=== PATIENT | female | born 1975 | race Caucasian/White ===

== ENCOUNTER 2017-02-24 07:47 | Inpatient (IN) | payer BC ==
--- NOTE | 2017-02-11 10:16 | GHP ---
[f rep st] PREOP HISTORY AND PHYSICAL Amended report Patient slated for surgery on February 24, 2017, on the obstetric service. HISTORY OF PRESENT ILLNESS: Upon admission, the patient is a 41-year-old, G3, P1, A1 with estimated due date of 02/28/2017, who is slated for repeat C- section on 02/24 at 39+ weeks gestation. Patient has a history of prior section and declines trial of labor. The patient also has undesired fertility and desires to have a bilateral salpingectomy for permanent sterilization. If vascularity precludes having the tubes removed, then she would like bilateral tubal ligation. The patient has a history with her first of being a gestational diabetic A2 and was then followed by an institutional asset manager throughout this . The patient initially did insulin in the first trimester; however, weaned off this as her fasting blood sugars remained stable. The patient maintained Glucophage throughout the and has had stable blood sugars in the normal range. The patient has also had serial ultrasounds through the . Initially, the estimated weight was in the 8th percentile; however, a followup at 28 weeks was the 16th percentile, and a marginal cord insertion was noted. All anatomy was finally verified at 32 weeks gestation. The estimated weight was the 32nd percentile. Normal fluid and Dopplers. The patient has been counseled as to risks and benefits of repeat surgery and salpingectomy, and the consent form has been signed. LABS: The patient's blood type is A positive with negative antibody screen. RPR nonreactive. Rubella immune. Hepatitis B surface antigen negative. HIV negative. Initial hematocrit 38% with mild drop in mid to 35%, and with iron supplementation it remained stable at 34%. Pap smear was normal. Gonorrhea and chlamydia negative. Verifi testing was negative. MSAFP was not performed. GBS culture was negative. PAST MEDICAL HISTORY: The patient has used insulin in the past for gestational diabetes A2. History of PCOS and has used Glucophage in the past, and maintained this through the . Hypothyroidism for years. History of a kidney stone, age 30. Obesity. PAST SURGICAL HISTORY: section in 2013. Appendectomy in 2012. Lithotripsy at age 30 for kidney stone. PAST OBSTETRIC HISTORY: In 2011, SAB in the first trimester. In 2013, a viable female born by section at 6 pounds due to intolerance to labor. ALLERGIES: The patient has latex sensitivity. CURRENT MEDICATIONS: vitamins, Synthroid 137 mcg a day. The patient has been advised to not use generics, Glucophage extended release 500 mg b.i.d. , iron. SOCIAL HISTORY: The patient is , lives with her , and daughter. The patient is a nonsmoker. No alcohol or drug use. PHYSICAL EXAM: GENERAL: At the time of preop, the patient is a well-developed , well-nourished, obese female, in no distress. Weight 215 pounds. VITAL SIGNS : Blood pressure 110/74. The patient is clinically afebrile. Urinalysis shows trace protein with negative glucose. LUNGS: Clear to auscultation bilaterally. CARDIOVASCULAR: Regular rate and rhythm. heart tones are in the 140s. Pelvic exam is deferred. Fundal height at 37 cm. EXTREMITIES: Nontender. Mild edema. ASSESSMENT: Intrauterine at 39+ weeks gestation at the time of scheduled repeat section. Prior section, declines trial of labor. Undesired fertility, requesting bilateral salpingectomies. Hypothyroidism on Synthroid. Gestational diabetes on Glucophage. GBS negative. PLAN: Will proceed with repeat section on February 24 with bilateral salpingectomies. The patient is advised to use her usual Glucophage on the day prior to surgery and then hold the Glucophage in the morning, but to take her Synthroid with a sip of water. /[id number]/MODL Add acc#, 02/24/17, leanne LITTLEJOHN
[2017-02-24] MEDS ORDERED: CITRIC ACID/SODIUM CITRATE 30 ML UDCUP ONE (08:33)
[2017-02-24] MEDS ORDERED: CEFAZOLIN 2 GM/DEXTROSE/100 ML BAG IV ONE (08:33)
[2017-02-24] MEDS ORDERED: ceFAZolin 2 GM/DEXTROSE 100 ML IV ONE (08:35)
[2017-02-24] MEDS ORDERED: LR 500 ML IV ONE (08:35)
[2017-02-24] MEDS ORDERED: LIDOCAINE 1% 2 ML INJ ONE (08:57)
[2017-02-24] MEDS ORDERED: LR 1,000 ML IV SCH (09:00)
[2017-02-24] MEDS ORDERED: CITRIC ACID/SODIUM CITRATE 30 ML UDCUP PO ONE (09:00)
[2017-02-24 09:03] LABS: % IMMATURE GRANULYOCYTES 0.3 % (0.0-1.1); ABSOLUTE IMMATURE GRANULOCYTES 0.03 10^3/uL (0.00-0.10); ADD DIFF? NO; ADD MORPH? NO; ADD SCAN? NO; ATYPICAL LYMPHOCYTE FLAG 20 (0-99); FRAGMENT RBC FLAG 0 (0-99); HEMATOCRIT 36.1 % (38.0-47.0); HEMOGLOBIN 12.6 g/dL (12.6-16.3); LEFT SHIFT FLG 0 (0-99); LIPEMIA HEMOLYSIS FLAG 90 (0-99); MEAN CELL HEMOGLOBIN 31.9 pg (27.9-34.1); MEAN CELL HEMOGLOBIN CONCENTR. 34.9 g/dL (32.4-36.7); MEAN CELL VOLUME 91.4 fL (81.5-99.8); MEAN PLATELET VOLUME 11.3 fL (8.7-11.7); PLATELET CLUMPS FLAG 10 (0-99); PLATELET COUNT 163 10^3/uL (150-400); RED BLOOD CELL COUNT 3.95 10^6/uL (4.18-5.33); RED CELL DISTRIBUTION WIDTH 12.9 % (11.5-15.2)
[2017-02-24] MEDS ORDERED: morphINE PF 5 MG/10 ML INJ ONE (09:56)
[2017-02-24] MEDS ORDERED: fentaNYL 100 MCG/2 ML INJ ONE (09:56)
[2017-02-24] MEDS ORDERED: OXYTOCIN 100 UNITS/10 ML VIAL ONE (10:01)
[2017-02-24] MEDS ORDERED: PHENYLEPHRINE HCL 100 MCG/ML SYR ONE ×2 (10:01→10:43)
[2017-02-24] MEDS ORDERED: ONDANSETRON 4 MG/2 ML VIAL ONE (10:27)
--- NOTE | 2017-02-24 12:01 | OBPROC ---
- Delivery Pre-op Diagnoses: IUP at 39+ wks, PCS - declines KAT, GDM - diet controlled, undesired fertility Post-op Diagnoses: same, delivered Procedure: Repeat, Low Transverse, Other (Specify) (bilateral salpingectomies) Surgeon: Jazz Jorgensen Hospitality Host: Ingrid Hernandez Anesthesiologist: Aneudy Ngo Multi Operation Machine Operator/WASH BOX OPERATOR: Maira Toscano (WASH BOX OPERATOR) Anesthesia: Spinal (with Duramorph for post op pain relief) Complications: None Findings: normal uterus, tubes and ovaries. some bladder scarring but allowed minimal visceral separation for bladder flap. tubes removed easily with three separate ties with 0-Vicryl over vasculature. all appeared hemostatic after uterine replacement. Specimen(s)/Path: Fallopian Tube(s) IV Fluid (ml): 3,000 EBL: 1000 - Info A Delivery Date: 02/24/17 Delivery Time: 10:47 Sex of Infant: Female Score (1 Min): 8 Score (5 Min): 9
[2017-02-24] MEDS ORDERED: EPSOM SALT 454 GM TP PRN (12:02)
[2017-02-24] MEDS ORDERED: LR 1,000 ML IV PRN (12:02)
[2017-02-24] MEDS ORDERED: OXYTOCIN/RINGERS LACTATE 1,000 ML IV PRN (12:02)
[2017-02-24] MEDS ORDERED: OLIVE OIL 118 ML BTL MISC PRN (12:02)
[2017-02-24] MEDS ORDERED: LIDOCAINE 1% 30 ML SDV SC PRN (12:02)
[2017-02-24] MEDS ORDERED: TERBUTALINE SULFATE 1 MG/ML VIAL IV PRN (12:02)
[2017-02-24] MEDS ORDERED: LACTULOSE 20 GM/30 ML UDCUP PO PRN (12:06)
[2017-02-24] MEDS ORDERED: POLYETHYLENE GLYCOL 3350 17 GM PKT PO PRN (12:06)
[2017-02-24] MEDS ORDERED: MAGNESIUM HYDROXIDE 30 ML UDCUP PO PRN (12:06)
[2017-02-24] MEDS ORDERED: BISACODYL 10 MG SUPP PR PRN (12:06)
[2017-02-24] MEDS ORDERED: METOCLOPRAMIDE 10 MG/2 ML VIAL ONE (12:14)
[2017-02-24] MEDS ORDERED: METOCLOPRAMIDE 10 MG/2 ML VIAL IVP PRN (12:24)
[2017-02-24] MEDS ORDERED: PHENYLEPHRINE HCL 100 MCG/ML SYR IVP PRN (12:24)
[2017-02-24] MEDS ORDERED: ONDANSETRON 4 MG/2 ML VIAL IVP PRN (12:24)
[2017-02-24] MEDS ORDERED: NALOXONE HCL 0.4 MG/ML INJ IVP PRN (12:24)
--- NOTE | 2017-02-24 15:31 | PREANESOB ---
Obstetric Pre-Anesthesia Info - General Info Proposed Procedure: Repeat C Section. : 3 Para: 2 WBD: 39 - Info Monitors: External FHR Baseline (bpm): 135 FHR Pattern: Reassuring - Labor Status Section History: Repeat Indications for Current Section: Elective/Repeat Labor Epidural: No Anesthesia ROS: Prior epidural for labor and C Section, PCOS, hypothyroid. Allergies/Adverse Reactions: Allergy/AdvReac Type Severity Reaction Status Date / Time No Known Allergies Allergy Unverified 03/03/14 07:19 Home Medications: Medication Instructions Recorded 1 tab PO DAILY 03/03/14 Synthroid 150 mcg (RX) 1 tab PO DAILY 03/03/14 Vit D3 & K/Berberine HCl/Hops 1 iunits PO DAILY 03/03/14 Iron,Carbonyl [Feosol] 45 mg PO DAILY 02/24/17 metFORMIN SR [Glucophage XR 500 mg 500 mg PO DAILY@1800 02/24/17 (*)] Visit Medications: Generic Name Dose Route Start Last Admin Trade Name Freq PRN Reason Stop Dose Admin Hydrocodone Bitart/Acetaminophen 1 - 2 tab 02/24/17 12:05 [place] 5/325 PO 03/06/17 12:04 Q4HRS PRN Pain, Moderate Bisacodyl 10 mg 02/24/17 12:06 Dulcolax Rectal [place] 08/23/17 12:05 DAILY PRN Constipation Protocol Diphenhydramine HCl 25 - 50 mg 02/24/17 12:24 Benadryl Injection IVP 08/23/17 12:23 Q6HRS PRN Itching Lactated Ringer's 1,000 mls @ 125 mls/hr 02/24/17 09:00 Lr IV 08/23/17 08:59 CONT FOREST Lactated Ringer's 1,000 mls @ 0 mls/hr 02/24/17 12:02 Lr IV 08/23/17 12:01 PRN PRN SEE PROTOCOL CONDITIONS Protocol Per Protocol Oxytocin/Lactated Ringer's 1,000 mls @ 150 mls/hr 02/24/17 12:02 Pitocin 20 Units/Lr (Premix) IV PRN PRN Post- bleeding Ibuprofen 600 mg 02/24/17 12:02 Motrin PO 08/23/17 12:01 Q6HRS PRN post , inflammation Ketorolac Tromethamine 30 mg 02/24/17 18:00 Toradol IVP 02/25/17 12:01 Q6HRS [facility] Lactulose 20 gm 02/24/17 12:06 Cephulac PO 08/23/17 12:05 TID PRN Constipation Protocol Levothyroxine Sodium 137 mcg 02/25/17 06:00 Synthroid PO 08/24/17 05:59 DAILY AT 6AM FOREST Lidocaine HCl 30 ml 02/24/17 12:02 Lidocaine Hcl 1% SC 08/23/17 12:01 ONCE PRN Episiotomy Magnesium Hydroxide 30 ml 02/24/17 12:06 Milk Of Magnesia PO 08/23/17 12:05 DAILY PRN Constipation Protocol Magnesium Sulfate 454 gm 02/24/17 12:02 Epsom Salt TP 08/23/17 12:01 PRN PRN perineal discomfort Naloxone HCl 0.4 mg 02/24/17 12:24 Narcan IVP 02/25/17 12:28 PRN PRN respiratory depression [place] Oil 118 ml 02/24/17 12:02 Sweet Oil MISC 08/23/17 12:01 ONCE PRN preneal massage Ondansetron HCl 4 mg 02/24/17 12:24 Zofran IVP 08/23/17 12:23 Q4HRS PRN Nausea/Vomiting, Can't Take PO Polyethylene Glycol 17 gm 02/24/17 12:06 Miralax PO 08/23/17 12:05 DAILY PRN Constipation, patient prefers Protocol Senna/Docusate Sodium 1 - 2 tab 02/24/17 21:00 Senokot-S PO 08/23/17 20:59 BID [facility] Protocol Terbutaline Sulfate 0.25 mg 02/24/17 12:02 Brethine IV 08/23/17 12:01 ONCE PRN Tachysystole Discontinued Medications Generic Name Dose Route Start Last Admin Trade Name Freq PRN Reason Stop Dose Admin Cefazolin Sodium/Dextrose Confirm 02/24/17 08:33 Ancef 2 Gm (Premix) Administered 02/24/17 08:34 Dose 2 gm IV .STK-MED ONE Citric Acid/Sodium Citrate Confirm 02/24/17 08:33 Bicitra Administered 02/24/17 08:34 Dose 30 ml .ROUTE .STK-MED ONE Citric Acid/Sodium Citrate 30 ml 02/24/17 09:00 02/24/17 09:11 Bicitra PO 02/24/17 09:01 30 ml ONCALL ONE Administration Fentanyl Confirm 02/24/17 09:56 Sublimaze Administered 02/24/17 09:57 Dose 100 mcg .ROUTE .STK-MED ONE Cefazolin Sodium/Dextrose 100 mls @ 200 mls/hr 02/24/17 08:35 02/24/17 09:32 Ancef 2 Gm (Premix) IV 02/24/17 09:04 100 mls ONCALL ONE Administration Protocol Lactated Ringer's 500 mls @ 0 mls/hr 02/24/17 08:35 02/24/17 09:31 Lr IV 02/24/17 08:36 500 mls ONCE ONE Administration As Directed Lidocaine HCl Confirm 02/24/17 08:57 Lidocaine Hcl 1% Administered 02/24/17 08:58 Dose 2 ml .ROUTE .STK-MED ONE Metoclopramide HCl Confirm 02/24/17 12:14 Reglan Injection Administered 02/24/17 12:15 Dose 20 mg .ROUTE .STK-MED ONE Metoclopramide HCl 20 mg 02/24/17 12:24 Reglan Injection IVP 02/24/17 13:25 ONCE PRN Nausea/Vomiting, Use 2nd Morphine Sulfate Confirm 02/24/17 09:56 Morphine Pf 5 Mg/10 Ml Administered 02/24/17 09:57 Dose 5 mg .ROUTE .STK-MED ONE Ondansetron HCl Confirm 02/24/17 10:27 Zofran Administered 02/24/17 10:28 Dose 8 mg .ROUTE .STK-MED ONE Oxytocin Confirm 02/24/17 10:01 Pitocin Administered 02/24/17 10:02 Dose 100 units .ROUTE .STK-MED ONE Phenylephrine HCl Confirm 02/24/17 10:01 Marty-Synephrine Administered 02/24/17 10:02 Dose 1,000 mcg .ROUTE .STK-MED ONE Phenylephrine HCl Confirm 02/24/17 10:43 Marty-Synephrine Administered 02/24/17 10:44 Dose 1,000 mcg .ROUTE .STK-MED ONE Phenylephrine HCl 100 mcg 02/24/17 12:24 Marty-Synephrine IVP 02/24/17 13:25 Q1M PRN Hypotension - Anesthesia History Response to Local Anesthetics: Normal Anesthesia & Operative History: No Prior Problems - Social History Substance Use/Abuse: Denies - Focused Exam Latest Vital Signs (Nursing): Temp Pulse Resp BP Pulse Ox 36.3 C 90 16 100/52 L 93 02/24/17 15:00 02/24/17 15:00 02/24/17 15:00 02/24/17 15:00 02/24/17 15:00 Blood Pressure: 117/72 Heart Rate: 81 Respiratory Rate: 18 Height/Weight (Nursing): Height 167.64 cm Weight 98.883 kg Physical Exam: Within normal limits. ASA Status: II Labs: 02/24/17 08:30 Patient ABO/Rh A POSITIVE 02/24/17 08:30 - Plan Anesthetic Plan: SAB Consent Signed and on Chart: Yes Patient/Guardian Understands and Agrees to Plan: Yes
--- NOTE | 2017-02-24 15:34 | POSTANESTH ---
Post Anesthetic Evaluation Cardiovascular Status: Normal, Stable Respiratory Status: Normal, Stable, Similar to Pre-op Cond. Level of Consciousness/Mental Status: Can Participate in Eval, Alert and Oriented Pain Control: Adequate, Prn Tx Ordered Nausea/Vomiting Control: Adequate, Prn Tx Ordered Complications Possibly Related to Anesthesia: None Noted (Tolerated SAB well, BP treated, comfortable for surgery, to PACU, no pain, nausea treated with reglan.)
[2017-02-24] MEDS: KETOROLAC 30 MG/1 ML SDV IVP SCH (17:45)
--- NOTE | 2017-02-24 19:47 | SOAPPROG ---
SOAP Progress Note Assessment/Plan: Assessment: POD 1/2, s/p RCS, BS gest DM - diet controlled hypothyroid Plan: Doing ok - nausea lessening, routine care 02/24/17 19:43 Subjective: Pt doing better - nausea less and little liquids - broth. Very happy not to be as swollen as last time. Baby has made little attempt to latch but took donor milk and improved blood sugar. Pain controlled. Happy with SCDs, coyle draining well. Objective: Vital Signs Temp Pulse Resp BP Pulse Ox 36.6 C 67 14 97/67 L 96 02/24/17 16:00 02/24/17 16:00 02/24/17 16:00 02/24/17 16:00 02/24/17 16:00 Laboratory Results 02/24/17 08:30 02/23/17 02/24/17 02/25/17 05:59 05:59 05:59 Intake Total 3000 Output Total 1100 Balance 1900 Physical Exam - Physical Exam General Appearance: WD/WN Abdomen: non-tender (approp post op tenderness), soft, other (bandage CDI, FF at umb) Pelvic Exam: vaginal bleeding (normal lochia) Extremities: non-tender, pedal edema (moderate) Neuro/Psych: normal mood/affect ICD10 Worksheet Patient Problems: Problems Problem Status Onset Status post bilateral salpingectomy Acute Status post repeat low transverse section Acute Gestational diabetes mellitus, class A2 Acute
[2017-02-24] MEDS ORDERED: PROMETHAZINE HCL 25 MG TAB PO PRN (19:53)
[2017-02-24] MEDS ORDERED: SCOPOLAMINE HYDROBROMIDE 1.5 MG PATCH TD ONE (19:55)
[2017-02-24] MEDS: metFORMIN SR 500 MG TAB PO SCH (21:19)
[2017-02-24] MEDS: SENNOSIDES/DOCUSATE SODIUM TAB PO SCH (22:57)
[2017-02-25] MEDS: KETOROLAC 30 MG/1 ML SDV IVP SCH ×2 (01:12→06:47)
[2017-02-25] MEDS ORDERED: LEVOTHYROXINE 137 MCG TAB PO SCH (06:00)
[2017-02-25] MEDS: LEVOTHYROXINE 137 MCG TAB PO SCH (06:48)
[2017-02-25] MEDS: metFORMIN SR 500 MG TAB PO SCH ×2 (08:20→19:42)
--- NOTE | 2017-02-25 08:32 | SOAPPROG ---
SOAP Progress Note Assessment/Plan: Assessment: 41y/o Day 1 s/p elective repeat C/S 02/24/17 Plan: Con't routine PP care Con't routine cath care Iron/Colace Anticipate d/c to home 02/27/17 02/25/17 08:29 Subjective: Pt resting comfortably in bed with at bedside. Feeding with donor milk , reports going well. Denies BM. Cath in place, draining to gravity. Tolerating regular diet. Pain well-controlled. SCDs on. Denies feelings of depression/blues. Objective: Vital Signs Temp Pulse Resp BP Pulse Ox 35.9 C L 68 12 104/69 93 02/25/17 05:11 02/25/17 05:11 02/25/17 05:11 02/25/17 05:11 02/25/17 05:11 Laboratory Results 02/25/17 04:52 02/24/17 02/25/17 02/26/17 05:59 05:59 05:59 Intake Total 3600 Output Total 2100 Balance 1500 Physical Exam - Physical Exam General Appearance: alert, no apparent distress Respiratory: lungs clear, normal breath sounds Cardiac/Chest: regular rate, rhythm Abdomen: non-tender, soft, other (fundus firm @U; incision bandage clean/dry/ intact, old drainage on L side marked/unchanged) Skin: normal color, warm/dry Neuro/Psych: alert, normal mood/affect, oriented x 3 ICD10 Worksheet Patient Problems: Problems Problem Status Onset Status post repeat low transverse section Acute Status post bilateral salpingectomy Acute Gestational diabetes mellitus, class A2 Acute
[2017-02-25] MEDS: SENNOSIDES/DOCUSATE SODIUM TAB PO SCH ×2 (09:21→19:41)
[2017-02-25] MEDS: HYDROCODONE/APAP 5/325 TAB PO PRN ×4 (10:36→23:50)
[2017-02-25] MEDS: IBUPROFEN 600 MG TAB PO PRN ×2 (13:20→19:42)
[2017-02-25] MEDS: IRON POLYSAC/IRON HEME 28 MG TAB PO SCH (15:23)
--- NOTE | 2017-02-25 16:23 | GOP ---
[f rep st] OPERATIVE REPORT DATE OF OPERATION: 02/24/2017 SURGEON: Jazz Jorgensen MD HSPT TUTOR: Ingrid Hernandez MD. ANESTHESIA: Spinal anesthesia with Duramorph placement for postoperative pain relief. ANESTHESIOLOGIST: Jeremias Ngo MD. PREOPERATIVE DIAGNOSIS: Intrauterine at 39+ weeks; previous section declining trial of labor; gestational diabetes, diet controlled; undesired fertility. POSTOPERATIVE DIAGNOSIS: Intrauterine at 39+ weeks; previous section declining trial of labor; gestational diabetes, diet controlled ; undesired fertility; delivered. PROCEDURE PERFORMED: Repeat low transverse section with bilateral salpingectomies. FINDINGS: Viable female with Apgars of 8 and 9. ESTIMATED BLOOD LOSS: 1000 mL. INDICATIONS: PREOPERATIVE NOTE: Patient is a 41-year-old, G3, P1, A1 with an estimated due date of 02/28/2017 who was scheduled for a planned repeat section on February 24. The patient has been counseled about a trial of labor and declined attempting labor. The patient has undesired fertility and has been counseled about the options of tubal ligation versus salpingectomy to reduce potential cancer risk in the future. Patient does want to proceed with bilateral salpingectomies knowing that this essentially eliminate a fertility chance in the future. The patient has been counseled as to the risks and benefits of surgery and consent form has been signed. The patient has been a gestational diabetic, initially requiring insulin; however, then was weaned off this and has maintained good blood sugars with Glucophage. The patient's development has been watched monthly with ultrasound and the last estimated weight was 32nd percentile. The patient's thyroid management has been stable through the . DESCRIPTION OF PROCEDURE: The patient was taken to the operating room, where following satisfactory spinal anesthesia, the patient was placed in supine position with right hip displacement. The patient had received preoperative antibiotics and had SCDs on her lower extremities for DVT prophylaxis. The patient's abdomen and perineum were prepped and the patient draped in the usual sterile manner for abdominal procedures. A Mccollum catheter was placed within the bladder and draining clear urine. A Pfannenstiel incision was made in the lower abdomen along the previous scar line. The incision was extended down to the level of the fascia and the fascia was incised in the midline. This was extended sharply bilaterally and then the fascia was off the rectus muscles superiorly and inferiorly. The rectus muscles were in the midline and pulled to the sides. The parietal perineum was entered up high and was sharply dissected superiorly and inferiorly with care around the bladder. The visceroperitoneum was pretty densely adherent to the lower uterine segment and it was difficult to do much dissection to develop the flap. After the visceroperitoneum was reflected down a bit of the way and the bladder was not felt to be in the operative area then the low transverse hysterotomy was performed. This was done in the midline and then extended sharply bilaterally with bandage scissors. The amniotic sac was intact and then this was artificially opened and clear fluid obtained. The head was flexed and then with fundal pressure the head was brought down through the hysterotomy and then delivered through the hysterotomy without any problems. Bulb suction was performed on the hysterotomy. There was no nuchal cord noted. With additional fundal pressure, then the remainder of the baby was delivered through the hysterotomy without any problems. The baby was vigorous at the time of . The cord was doubly clamped and cut and the baby was handed off the field for full evaluation. After the delivery abdomen bulb suction was performed before the baby was handed off. Cord blood was obtained for hospital purposes. Following this, the placenta was manually extracted off the interior uterine surface intact. The uterus then was externalized and the interior wiped with a laparotomy pad to ensure no retained membrane along the anterior lining. The uterine fundus was juana down well. There was well-controlled bleeding. The edges of the hysterotomy were identified and there were no extensions. After the interior of the uterus was wiped clean, then the hysterotomy was closed with 2 layers of 0 Vicryl. First layer was a running interlocking layer and the 2nd was an imbricating layer of the same suture. This provided good hemostasis. Pressure was applied in this area while the salpingectomies were performed. The right tube was 1st the from the uterus. The tube was elevated with Tamiment clamps and the Bovie cautery was used to separate in the avascular windows. Then 0 Vicryl was used to tie off the vasculature areas. The tube was completely removed and handed off the field to be sent to Pathology. The vascular portions that were tied off were also cauterized. The identical procedure was performed on the left tube with a complete salpingectomy being accomplished. Following this, the incision was reinspected and with some small amount of Bovie cautery at the free tissue edges. Then there was good hemostasis. The posterior cul-de-sac was irrigated and suctioned for blood clots. The uterus then was carefully replaced within the abdomen and after replacement then the suture lines along the salpingectomies were re-inspected to ensure good hemostasis. Each pelvic gutter was irrigated and suctioned for blood clots. One final inspection at lower uterine section revealed good hemostasis along the hysterotomy. The bladder flap area, as well as the parietal perineum were hemostatic. The rectus muscles were reapproximated with a horizontal mattress type stitch of 3-0 Vicryl. Following this, the fascia was closed with a running layer of 0 Vicryl. Irrigation was performed of the subcutaneous tissue and Bovie cautery was used where needed. The Mary Kate's fascial layer was closed with a running layer of 3-0 Vicryl. Following this, the skin edges were reapproximated with a 4 -0 Vicryl in a subcuticular stitch. This provided good closure. Benzoin was applied around the incision and Steri-Strips were applied. Following this, Telfa and 4x4s were used over the incision for dressing. The uterine fundus was massaged and blood was allowed to escape vaginally. There was good uterine tone. The Mccollum catheter continued to drain clear urine. The patient tolerated the procedure well. She was wiped off and then taken out of the operating room in stable condition. NURSE PRACTITIONER: Maira Toscano. SPECIMENS TO PATHOLOGY: Bilateral tubes. TOTAL IV FLUIDS: 3000 mL. TIME OF DELIVERY: 10:47 COMPLICATIONS: There were no complications with the surgery. /[id number]/MODL MTDD
[2017-02-26] MEDS: IBUPROFEN 600 MG TAB PO PRN ×4 (01:17→23:03)
[2017-02-26] MEDS: HYDROCODONE/APAP 5/325 TAB PO PRN ×5 (04:13→21:52)
[2017-02-26] MEDS: LEVOTHYROXINE 137 MCG TAB PO SCH (06:07)
[2017-02-26] MEDS: SENNOSIDES/DOCUSATE SODIUM TAB PO SCH ×2 (08:13→21:52)
[2017-02-26] MEDS: IRON POLYSAC/IRON HEME 28 MG TAB PO SCH (08:14)
[2017-02-26] MEDS: metFORMIN SR 500 MG TAB PO SCH ×2 (08:14→18:40)
--- NOTE | 2017-02-26 11:18 | OBPROG ---
OBG Progress Note Assessment/Plan: Assessment: 41 y/o POD #2 s/p Rpt LTCS and BS doing well. Plan: Continue routine POC. Likely d/c home tomorrow. support. 02/26/17 11:16 Subjective: Pt is doing well today. She is tolerating reg diet and has good pain control with Ibuprofen and Hilliards. She is ambulating, voiding without difficulty and has min lochia. She is working on breast feeding and pumping and supplementing with donor milk. She is planning to shower today. Objective: 02/25/17 04:52 Patient ABO/Rh A POSITIVE 02/24/17 08:30 Temp Pulse Resp BP Pulse Ox 36.8 C 81 16 113/80 96 02/26/17 10:27 02/26/17 10:27 02/26/17 10:27 02/26/17 10:27 02/26/17 10:27 Uterine Position/Fundal Height: Umbilicus -2 Uterine Tone: Firm - Physical Exam General Appearance: WD/WN, alert, no apparent distress Neck: non-tender, full range of motion, supple Respiratory: chest non-tender, lungs clear, normal breath sounds Cardiac/Chest: regular rate, rhythm Abdomen: normal bowel sounds, incision (c/d/i) Extremities: swelling (no), Leisa's sign (neg) ICD10 Worksheet Patient Problems: Problems Problem Status Onset Status post bilateral salpingectomy Acute Status post repeat low transverse section Acute Gestational diabetes mellitus, class A2 Acute
[2017-02-27] MEDS: HYDROCODONE/APAP 5/325 TAB PO PRN ×4 (01:55→12:54)
[2017-02-27] MEDS: LEVOTHYROXINE 137 MCG TAB PO SCH (05:39)
[2017-02-27] MEDS: IBUPROFEN 600 MG TAB PO PRN ×2 (05:39→12:07)
--- NOTE | 2017-02-27 07:50 | OBPROG ---
OBG Progress Note Assessment/Plan: Assessment: 1) s/p RCS, b/l salpingectomy POD #3 - pt is stable 2) Anemia - pt is asymptomatic, on iron 3) GDMA2 - stable Plan: Continue routine pp care Plan for d/c home today Instructions reviewed Rx given for [place] and Motrin Cont PNV and iron Will check 2hr GTT at 6 weeks Pelvic rest RTC in 2, 4 and 6 weeks for pp visit 02/27/17 07:55 Subjective: Pt seen and examined. Doing well with no complaints. Pain is well controlled. Likes the abdominal binder. She is OOB, little regular diet, voiding, passing flatus-no BM yet. Moderate lochia. She is pumping, some difficulty with . Denies any f/c/n/v/CP or SOB. Objective: 02/25/17 04:52 Patient ABO/Rh A POSITIVE 02/24/17 08:30 Temp Pulse Resp BP Pulse Ox 36.2 C 62 14 111/73 94 02/26/17 20:00 02/26/17 20:00 02/26/17 20:00 02/26/17 20:00 02/26/17 20:00 Uterine Position/Fundal Height: Umbilicus -2 Uterine Tone: Firm - Physical Exam General Appearance: WD/WN, alert, no apparent distress Respiratory: lungs clear, normal breath sounds Cardiac/Chest: regular rate, rhythm Abdomen: normal bowel sounds, non-tender, soft, flatus (+), incision (C/D/I with steri strips; + ecchymosis) Genitourinary: lochia (moderate) Extremities: non-tender, normal inspection Neuro/Psych: alert, normal mood/affect, oriented x 3 ICD10 Worksheet Patient Problems: Problems Problem Status Onset Status post bilateral salpingectomy Acute Status post repeat low transverse section Acute Gestational diabetes mellitus, class A2 Acute
[2017-02-27 08:06] VITALS: BP 132/87; RESP 16; TEMP 97.3; O2SAT 93
[2017-02-27] MEDS: SENNOSIDES/DOCUSATE SODIUM TAB PO SCH (08:50)
[2017-02-27] MEDS: IRON POLYSAC/IRON HEME 28 MG TAB PO SCH (08:50)
[2017-02-27] MEDS: metFORMIN SR 500 MG TAB PO SCH (08:50)
[2017-02-27 15:00] VITALS: PULSE 88
== END 2017-02-27 13:45 | disposition home or self-care (01) | DRG 766 ==
LOC: FLD 07:47 → FOB 14:51
PROVIDERS: ADMIT Obstetrics & Gynecology; ATTEND Obstetrics & Gynecology
PROC: 10D00Z1 Extraction of Products of Conception, Low, Open Approach (ICD-10-PCS; principal; 2017-02-24)
PROC: 0UT70ZZ Resection of Bilateral Fallopian Tubes, Open Approach (ICD-10-PCS; principal; 2017-02-24)
DX: O34.211 Maternal care for low transverse scar from previous cesarean delivery (principal); O24.415 Gestational diabetes mellitus in pregnancy, controlled by oral hypoglycemic drugs; Z30.2 Encounter for sterilization; Z3A.39 39 weeks gestation of pregnancy; Z37.0 Single live birth
CPT/HCPCS: J0690; J1885; J2274; J2370; J2405; J2590; J2765; J3010

== ENCOUNTER → 2017-03-03 | Outpatient (CLI) | payer BC | LOC: FLACT 13:03 | PROVIDERS: ATTEND Obstetrics & Gynecology | DX: O92.5 Suppressed lactation (principal) | CPT/HCPCS: G0463 ==